=== PATIENT | female | born 1980 | race Two or more races ===

== ENCOUNTER 2018-12-07 23:08 | Emergency (ER) | payer SELFPAY ==
[~2018-12-07] VITALS: Ht 162.6 cm; Wt 90.7 kg
[2018-12-07] MEDS ORDERED: ARIPIPRAZOLE 400 MG (23:18)
--- NOTE | 2018-12-07 23:27 | NUR ---
Dr. Lynn at bedside for MSE.
--- NOTE | 2018-12-07 23:50 | NUR ---
Pt states she is feeling better, but unable to provide urine at this time.
[2018-12-07 23:57] LABS: BASOPHILS # (AUTO) 0.1 K/uL (0.0-8.0); BASOPHILS % (AUTO) 0.6 % (0.0-2.0); EOSINOPHILS # (AUTO) 0.7 K/uL (0.0-0.7); EOSINOPHILS % (AUTO) 5.5 % (0.0-7.0); HEMATOCRIT 36.8 % (31.2-41.9); HEMOGLOBIN 12.4 g/dL (10.9-14.3); LYMPHOCYTES # (AUTO) 2.8 K/uL (20.0-40.0); LYMPHOCYTES % (AUTO) 22.5 % (20.5-51.5); MEAN CORPUSCULAR HEMOGLOBIN 28.3 uug (24.7-32.8); MEAN CORPUSCULAR HGB CONC 34 g/dL (32.3-35.6); MEAN CORPUSCULAR VOLUME 83.8 fL (75.5-95.3); MONOCYTES # (AUTO) 0.7 K/uL (2.0-10.0); MONOCYTES % (AUTO) 5.5 % (0.0-11.0); NEUTROPHILS # (AUTO) 8.2 K/uL (1.8-8.9); NEUTROPHILS % (AUTO) 65.9 % (38.5-71.5); PLATELET COUNT (AUTO) 333 K/uL (179-408); RED BLOOD CELL COUNT(AUTO) 4.39 MIL/uL (3.63-4.92); WHITE BLOOD COUNT (AUTO) 12.5 K/uL (3.8-11.8)
[2018-12-08 00:04] LABS: CARBON DIOXIDE 25 mmol/L (21-32); CHLORIDE 103 mmol/L (98-107); GLUCOSE 96 mg/dL (74-106); POTASSIUM 3.4 mmol/L (3.5-5.1)
[2018-12-08 00:05] LABS: CREATININE 0.9 mg/dL (0.6-1.3); UREA NITROGEN, BLOOD 9 mg/dL (7-18)
[2018-12-08 00:07] LABS: ETHANOL < 3 MG/DL (0-0)
[2018-12-08 00:14] LABS: ALANINE AMINOTRANSFERASE 45 U/L (14-59); ALKALINE PHOSPHATASE 85 U/L (50-136); ASPARTATE AMINOTRANSFERASE 37 U/L (15-37); BILIRUBIN,DIRECT 0.1 mg/dL (0.0-0.2); BILIRUBIN,TOTAL 0.5 mg/dL (0.2-1.0); TOTAL PROTEIN, SERUM 7.9 g/dL (6.4-8.2)
[2018-12-08 00:19] LABS: ACETAMINOPHEN < 2.0 ug/mL (10-30)
--- NOTE | 2018-12-08 00:46 | NUR ---
Pt states unable to provide urine right now.
--- NOTE | 2018-12-08 01:58 | NUR ---
Patient discharged to home in stable conditon. Written and verbal after care instructions given. Patient verbalizes understanding of instructions. Patient refused to leave hospital premises, called security, patient escorted out of ER via security. Patient ambulated out of ER with steady gait, no acute signs of distress, VSS, all belongings taken.
[2018-12-08 02:00] VITALS: BP 138/85
== END 2018-12-08 02:01 | disposition home or self-care (01) ==
LOC: ER 23:12
DX: F12.10 Cannabis abuse, uncomplicated (principal); F10.129 Alcohol abuse with intoxication, unspecified; Y90.0 Blood alcohol level of less than 20 mg/100 ml
CPT/HCPCS: 36415; 80048; 80076; 85025; 93005; 99284; G0480 ×2; G0481; A4663